=== PATIENT | female | born 1935 | race Caucasian/White ===

== ENCOUNTER 2016-08-17 09:52 | Inpatient (IN) | payer MEDICARE, OTHER ==
[~2016-08-17 09:52] MED LIST: MORPHINE SULFATE 15 MG TABLET.SA PO PRN; RINGERS SOLUTION,LACTATED 1,000 ML IV PRN; ROPIVACAINE HCL/PF 100 MG, EPINEPHrine 0.2 MG, KETOROLAC TROMETHAMINE 30 MG in NORMAL S... IJ PRN; TRANEXAMIC ACID 1,000 MG in NORMAL SALINE 100 ML IV PRN; ceFAZolin SODIUM 1 GM VIAL IV PRN
--- OUTSIDE RECORDS SUMMARY | 2016-08-17 09:57 | XMS REPORT | Continuity of Care Document ---
:1935 Author Organization [facility] ([facility]) Address [address] [place] [address] Phone [phone] Care Team Providers Name Role Phone ErosCarlos james Primary Care Provider [phone] Source Comments This disclosure is being made pursuant to the Care Everywhere program, applicable federal and state laws, and may not contain all informaitonavailable regarding this patient.[facility] ([facility]) Active Allergies and Adverse Reactions No Known Allergies Current Medications Not on file Active Problems Not on file Social History Tobacco Use Types Packs/Day Years Used Date Never Assessed Last Filed Vital Signs Vital Sign Reading Time Taken Blood Pressure 144/68 10/20/2014 12:52 PM CDT Pulse 66 10/20/2014 12:50 PM CDT Temperature 37.4 C (99.3 F) 10/20/2014 12:50 PM CDT Respiratory Rate 16 10/20/2014 12:50 PM CDT Height 1.661 m (5' 5.39") 10/20/2014 12:50 PM CDT Weight 72.5 kg (159 lb 13.3 oz) 10/20/2014 12:50 PM CDT Body Mass Index 26.28 10/20/2014 12:50 PM CDT Oxygen Saturation 97% 10/20/2014 12:50 PM CDT Plan of Care Health Maintenance Due Date Last Done Comments Hepatitis B Vaccine (1 of 3 - Primary Series) 1935 Tdap Vaccine 1944 Lipid Disorder Screening 10/05/1951 Td Vaccine 10/05/1951 Colonoscopy 1983 Zoster Vaccine 1993 Osteoporosis Screening (DXA Bone Density) 1998 Pneumococcal Vaccine (1 of 2 - PCV13) 1998 Influenza Vaccine: Seasonal (#1) 10/12/2015 Results from Last 3 Months Not on file
[2016-08-17] MEDS ORDERED: RINGERS SOLUTION,LACTATED 1,000 ML IV ONE ×2 (12:50→14:05)
[2016-08-17] MEDS ORDERED: ONDANSETRON HCL/PF 2 MG/ML VIAL IV PRN (14:22)
[2016-08-17] MEDS ORDERED: PROMETHAZINE HCL 5 MG in DEXTROSE 5 % IN WATER 50 ML IV PRN ×2 (14:22)
[2016-08-17] MEDS ORDERED: MAG HYDROX/ALUMINUM HYD/SIMETH 30 ML UDC PO PRN (14:22)
[2016-08-17] MEDS ORDERED: HYDROmorphone HCL 1 MG/ML DISP.SYRIN IV PRN (14:22)
[2016-08-17] MEDS ORDERED: diphenhydrAMINE HCL 50 MG/ML VIAL IV PRN (14:22)
[2016-08-17] MEDS ORDERED: ACETAMINOPHEN 500 MG TABLET PO PRN (14:22)
[2016-08-17] MEDS ORDERED: ZOLPIDEM TARTRATE 5 MG TABLET PO PRN (14:22)
[2016-08-17] MEDS ORDERED: MAGNESIUM HYDROXIDE 30 ML UDC PO PRN (14:22)
--- NOTE | 2016-08-17 14:28 | OR ---
Operative Report - Dictated Report Narrative: Date: 08/17/2016 Preoperative diagnosis: Right hip degenerative joint disease. Postoperative diagnosis: Right hip degenerative joint disease. Procedure: Right Total hip arthroplasty. Surgeon: Micky Sky M.D. Beater Head: Rob Marks PA-C Anesthesia: Spinal and local periarticular joint injection. Complications: None Specimens: Bone for disposal. Estimated blood loss: 100 milliliters. Retained implants: Depuy [place] size 5 femoral stem standard offset. Size 52 millimeter ouside diameter 3-hole [place] Gription acetabular cup. 52 millimeter outside by 36 millimeter inside diameter highly cross-linked acetabular liner. 36 millimeter diameter +1.5 millimeter cobalt chromium femoral head. Cancellous 6.5mm screw 30 millimeter length Indications: Mrs. Osorio is an 80-year-old female who has had long-standing left hip pain. This patient was followed in my clinic for period of time with significant complaints of right hip pain consistent with arthritic changes. She failed conservative measures including but not limited to activity modification, passage of time, medications, and other conservative measures. Patient wished to proceed with surgical treatment. The risks, benefits, and alternatives were discussed in clinic. The risks of , blood clots, bleeding, infection, nerve/tendon blood vessel/ injury, malposition of components, dislocation and/or instability of joint, intraoperative fracture, postoperative limited range of motion, persistent pain, failure of components, and need for additional procedures. Patient wished to proceed. Consent was obtained after answering all questions. Procedure: After marking the correct extremity on the floor, the patient was taken to the operating room. A timeout was performed. IV antibiotics consisting of Ancef were administered prior to the procedure. A spinal anesthetic was induced by anesthesia. A Lopez catheter was inserted. The patient was then transitioned to a lateral position on a well-padded pegboard. An axillary roll was placed. The head was in neutral position. The non- operative down leg was well-padded with SCD and NALLELY hose in place. The arms were supported and padded to protect from any undue pressure on the bony prominences and nerves. A well-padded anterior and posterior pelvic and chest posts were secured in order to maintain a stable position of the pelvis. This was placed so that the pelvis was perpendicular to the floor. The body was in line with the pelvis. Once it was felt that we had protected all the bony prominences and the patient was well secured with a safety belt as well, the leg was pre-scrubbed with alcohol, prepped and draped in a standard sterile fashion. A standard anterior lateral hip incision was marked out over the greater trochanter. Ioban drapes were then placed. The skin incision was then made. Sharp dissection with a scalpel utilizing cautery for hemostasis was carried out down to the gluteus and iliotibial band fascia. This was split in line with the skin incision. The greater trochanter bursa was excised. The anterior and posterior margins of the abductor tendon were identified. The anterior 1/2-1/3 of the tendon was tagged and reflected off the greater trochanter leaving a sleeve of tendon for repair at the completion of the case. This exposed the underlying hip joint capsule. A limb length stitch was placed in the skin and referencedd off a brook on the greater trochanter for evaluation of intraoperative limb lengths. An inverted T-type capsulotomy was made extending this up to the brim of the acetabulum. Using Homans to assist with elevation of the soft tissues off the anterior, superior, and inferior aspects of the femoral neck, the hip was then placed in a figure 4 position and the femoral head was dislocated. With the leg in an externally rotated and adducted position, the cutting flag was utilized in order to brook for a standard femoral neck cut approximately a fingerbreadth above the level of the lesser trochanter. This was done with reference to pre-operative films and overall alignment. This was done while protecting the surrounding soft tissues with Homans. The femoral head was then removed and sized for guidance on preparation of the acetabulum. It was noted that there was loss of articular cartilage on both the femoral head and weightbearing portions of the acetabulum. We then returned the leg to the table and turned our attention to the acetabulum. While protecting the surrounding soft tissues, the labrum and remaining tissue in the fovea were excised using a scalpel and cautery. A series of reamers up to size 52 millimeter were utilized to prepare the acetabulum. The final reamer had good purchase and exposed the bleeding subchondral bone. The acetabulum was then thoroughly irrigated ensuring that all bony and cartilaginous materials were removed, and the final acetabular shell was impacted into place. This was placed in approximately 45 degrees of abduction and 20 degrees of anteversion utilizing the outrigger and body axis for alignment. This had a good press fit. 1 6.5mm cancellous screw was placed in the superior posterior quadrant of the acetabulum. The shell was then thoroughly irrigated and the final polyethylene was impacted into place ensuring that it seated completely. This was then protected with a sponge while we returned our attention to the femur. With the leg in a figure 4 position, utilizing Homans for soft tissue protection , a box cutting osteotome, followed by Charnley awl, followed by serial reamers and broaches were utilized in order to prepare the femur. It was found that a size 5 broach gave good axial and rotational stability. The calcar reamer was utilized in order to clean up the cut edges. The proximal femur was visualized to ensure that there were no signs of fracture. A series of heads and necks were trialed. It was found that a standard neck and a + 1.5 femoral head gave good overall stability. There was minimal longitudinal instability. With the leg in the position of sleep, the femoral head was well covered. Hip range of motion was able to reach full extension and external rotation to greater than 75 degrees prior to impingement along the posterior acetabulum. The hip was able to be flexed to greater than 90 degrees with internal rotation greater than 60 degrees prior to anterior impingement. The limb lengths were near equal based on comparison to the contralateral side and the prior placed limb length stitch. At this point it was felt these were the appropriately sized femoral components as well as neck and femoral head. The trial implants were removed. The femur was thoroughly irrigated. The final implants were impacted into place, and the hip was reduced. After ensuring that there was no damage to the proximal femur , the standard periarticular joint injection of ropivacaine, Toradol, and epinephrine were injected into the joint capsule and surrounding soft tissues. Anesthesia then administered intravenous tranexamic acid. The capsule was repaired with a single interrupted #1 Vicryl. The abductor tendon was repaired to the greater trochanter utilizing #5 Ethibond through drill holes. This was oversewn with #1 Vicryl. The fascia was closed with interrupted #1 Vicryl. The wounds were thoroughly irrigated as we closed in layers. The deep and subcutaneous fat layers were closed with 0 and 3-0 Vicryl respectively. The subcutaneous tissue was closed with a running 3-0 Vicryl and the skin with Monocryl and Prineo Dermabond dressing. All sponge, needle, blade, and instrument counts were correct prior to closing the wounds. Sterile dressings consisting of 4 x 4's and tape were applied. The patient was awoken and transferred to her hospital bed and then to the postanesthesia care unit in stable condition. Postoperative condition: The plan is to admit to the medical/surgical inpatient floor postoperatively. There will be a projected 2 to 4 day hospital stay. Postoperatively 24 hours of IV antibiotics, pain control, physical therapy, occupational therapy, and medical comanagement will be utilized. Patient will be weightbearing as tolerated with anterior hip precautions. Postoperative films will be obtained in the recovery room.
[2016-08-17] MEDS: KETOROLAC TROMETHAMINE 15 MG/ML VIAL IV SCH ×2 (15:17→20:27)
[2016-08-17] MEDS: DEXTROSE 5%-LACTATED RINGERS 1,000 ML IV PRN (15:19)
[2016-08-17] MEDS: ceFAZolin SODIUM 1 GM in DEXTROSE 5 % IN WATER 100 ML IV SCH ×4 (15:24→21:33)
[2016-08-17] MEDS: MAGNESIUM OXIDE 400 MG TABLET PO SCH (17:20)
[2016-08-17] MEDS: MORPHINE SULFATE 15 MG TABLET.SA PO SCH (20:27)
[2016-08-17] MEDS: ROSUVASTATIN CALCIUM 10 MG TABLET PO SCH (20:27)
[2016-08-17] MEDS: BETA-CAROTENE(A) W-C , E/MIN 1 TAB TABLET PO SCH (20:28)
[2016-08-17] MEDS: SENNOSIDES/DOCUSATE SODIUM 1 TAB TABLET PO SCH (20:28)
[2016-08-17] MEDS: FAMOTIDINE 20 MG TABLET PO SCH (20:28)
[2016-08-17] MEDS: METHENAMINE MANDELATE 1 GM TABLET PO SCH (20:28)
[2016-08-18] MEDS: DEXTROSE 5%-LACTATED RINGERS 1,000 ML IV PRN (00:24)
[2016-08-18] MEDS: oxyCODONE HCL/ACETAMINOPHEN 1 TAB TABLET PO PRN ×3 (00:26→21:43)
[2016-08-18] MEDS: KETOROLAC TROMETHAMINE 15 MG/ML VIAL IV SCH ×4 (01:50→21:41)
[2016-08-18] MEDS: ceFAZolin SODIUM 1 GM in DEXTROSE 5 % IN WATER 100 ML IV SCH ×2 (03:53)
[2016-08-18 05:57] LABS: Hemoglobin 10.3 gm/dL (12.5-16.0); Mean Cell Volume 86.8 fl (78-100); Mean Corpuscular Hemoglobin 28.9 pg (27-31); Mean Corpuscular Hgb Conc 33.2 g/dl (32-36); Mean Platelet Volume 10.2 fl (6.0-9.5); Platelet Count 203 K/mm3 (150-450); Red Blood Count 3.57 M/mm3 (4.2-5.4); Red Cell Distribution Width 13.4 % (11.5-14.0); White Blood Count 10.8 K/mm3 (4.0-10.5)
[2016-08-18 06:18] LABS: Anion Gap 4.7 mmol/L (6.8-13.8); BUN/Creatinine Ratio 14.3 (9.0-21.6); Calcium * 8.5 mg/dL (7.9-10.9); Carbon Dioxide 31.5 mmol/L (24-32.6); Estimated Creat Clear 35.5; Potassium 3.2 mmol/L (3.4-4.6)
[2016-08-18] MEDS: LEVOTHYROXINE SODIUM 75 MCG TABLET PO SCH (07:22)
[2016-08-18] MEDS: HYDROCHLOROTHIAZIDE 25 MG TABLET PO SCH (08:00)
[2016-08-18] MEDS: METHENAMINE MANDELATE 1 GM TABLET PO SCH ×2 (08:00→21:43)
[2016-08-18] MEDS: BETA-CAROTENE(A) W-C , E/MIN 1 TAB TABLET PO SCH ×2 (08:00→21:45)
[2016-08-18] MEDS: ISOSORBIDE MONONITRATE 60 MG TAB.SR.24H PO SCH (08:00)
[2016-08-18] MEDS: CLOPIDOGREL BISULFATE 75 MG TABLET PO SCH (08:00)
[2016-08-18] MEDS: MORPHINE SULFATE 15 MG TABLET.SA PO SCH ×2 (08:03→21:43)
--- NOTE | 2016-08-18 08:14 | PN ---
Subjective - Date and Time Seen Date: 08/18/16 Time: 08:14 Subjective Narrative: Subjective: Reports pain last night which improved this morning. Was able to sit on the side of the bed with therapy. Pain is well-controlled. Voiding without any complications. Tolerating by mouth intake. Denies any nausea or vomiting. Denies calf pain. Slept well. Physical exam: Alert and oriented to person, place and time Right lower Extremity: Palpable dorsalis pedis pulse. Sensation grossly intact to light touch. Dressings clean and dry. Able to flex and extend ankle and toes. No excessive drainage. Calf and thigh are soft and nontender. Assessment: Postop day 1 status post right total hip arthroplasty. Plan: Continue with physical and occupational therapy weightbearing as tolerated. Continue with anticoagulation. 24 hours postoperative prophylactic antibiotics. Pain control with goal to rely on oral medications. Continue bowel regimen. Will need 6 weeks with walker or assitive device to protect joint while ambulating during the recovery process. Discharge planning. Discontinue drain and Lopez catheter. Repeat labs in a.m. Objective - Vitals Vitals: Last Vital Signs Temp 36.6 C 08/18/16 06:27 Pulse 77 08/18/16 08:00 Resp 16 08/18/16 06:27 BP 108/53 08/18/16 08:00 Pulse Ox 95 08/18/16 06:27 - Abnormal Lab Findings Abnormal Lab Findings: Abnormal Lab Results 08/18/16 08/18/16 Range/Units 05:54 05:54 WBC 10.8 H (4.0-10.5) K/mm3 RBC 3.57 L (4.2-5.4) M/mm3 Hgb 10.3 L (12.5-16.0) gm/dL Hct 31.0 L (37.0-47.0) % MPV 10.2 H (6.0-9.5) fl Potassium 3.2 L (3.4-4.6) mmol/L Anion Gap 4.7 L (6.8-13.8) mmol/L Est GFR (Non-Af Amer) 50 L (60-130) mL/min Random Glucose 182 H (70-110) mg/dL Cauti Physician Documentation - Urinary Catheter Management Urethral (Lopez) Date of Insertion: 08/17/16 Time of Insertion: 12:50 Date of Removal: 08/18/16 Time of Removal: 07:18
[2016-08-18] MEDS: POTASSIUM CHLORIDE 20 MEQ TABLET.SA PO SCH (11:51)
[2016-08-18] MEDS: CYANOCOBALAMIN 1,000 MCG TABLET PO SCH (11:52)
[2016-08-18] MEDS: CHOLECALCIFEROL 1,000 UNIT CAPSULE PO SCH (11:52)
[2016-08-18] MEDS: ENOXAPARIN SODIUM 40 MG/0.4 ML SYRG SC SCH (13:43)
[2016-08-18] MEDS: MAGNESIUM OXIDE 400 MG TABLET PO SCH (17:46)
[2016-08-18] MEDS: ROSUVASTATIN CALCIUM 10 MG TABLET PO SCH (21:42)
[2016-08-18] MEDS: FAMOTIDINE 20 MG TABLET PO SCH (21:44)
[2016-08-18] MEDS: SENNOSIDES/DOCUSATE SODIUM 1 TAB TABLET PO SCH (21:44)
[2016-08-19] MEDS: KETOROLAC TROMETHAMINE 15 MG/ML VIAL IV SCH ×2 (03:24→09:01)
[2016-08-19 06:21] LABS: Hematocrit 30.8 % (37.0-47.0); Hemoglobin 10.3 gm/dL (12.5-16.0); Mean Cell Volume 87.5 fl (78-100); Mean Corpuscular Hemoglobin 29.3 pg (27-31); Mean Corpuscular Hgb Conc 33.4 g/dl (32-36); Mean Platelet Volume 9.7 fl (6.0-9.5); Platelet Count 200 K/mm3 (150-450); Red Blood Count 3.52 M/mm3 (4.2-5.4); Red Cell Distribution Width 13.5 % (11.5-14.0); White Blood Count 7.3 K/mm3 (4.0-10.5)
[2016-08-19 06:33] LABS: Anion Gap 7.9 mmol/L (6.8-13.8); BUN/Creatinine Ratio 18.5 (9.0-21.6); Carbon Dioxide 30.6 mmol/L (24-32.6); Estimated Creat Clear 36.9; Potassium 3.5 mmol/L (3.4-4.6)
[2016-08-19] MEDS: LEVOTHYROXINE SODIUM 75 MCG TABLET PO SCH (07:26)
[2016-08-19] MEDS: MORPHINE SULFATE 15 MG TABLET.SA PO SCH (09:01)
[2016-08-19] MEDS: ISOSORBIDE MONONITRATE 60 MG TAB.SR.24H PO SCH (09:01)
[2016-08-19] MEDS: METHENAMINE MANDELATE 1 GM TABLET PO SCH (09:01)
[2016-08-19] MEDS: HYDROCHLOROTHIAZIDE 25 MG TABLET PO SCH (09:01)
[2016-08-19] MEDS: BETA-CAROTENE(A) W-C , E/MIN 1 TAB TABLET PO SCH (09:02)
[2016-08-19] MEDS: CLOPIDOGREL BISULFATE 75 MG TABLET PO SCH (09:02)
[2016-08-19 11:15] VITALS: BP 120/53
--- NOTE | 2016-08-19 11:40 | DS ---
(1) Acute blood loss anemia Problem: Acute (2) Hypokalemia Problem: Chronic (3) CAD (coronary artery disease) Problem: Chronic (4) GERD (gastroesophageal reflux disease) Problem: Chronic (5) Hyperlipidemia Problem: Chronic (6) Hypertension Problem: Chronic (7) Hypothyroid Problem: Chronic (8) Vitamin D deficiency Problem: Chronic (9) Scoliosis Problem: Chronic (10) Spinal stenosis Problem: Chronic (11) Macular degeneration Problem: Chronic (12) Status post total hip replacement, right Problem: Chronic Description of Stay: Mrs. Osorio was admitted to the floor after undergoing right total hip arthroplasty. Tolerated this well. Was admitted to the floor postoperatively for 24 hours of IV antibiotics, pain control, medical comanagement, and occupational and physical therapy. OT and PT were consulted to assist with activities of daily living and ambulation. Was made weightbearing as tolerated with anterior hip precautions. Pain was initially controlled with IV regimen. This was transitioned to oral once tolerating a by mouth intake. Was resumed on home diet and medications. Had a Lopez catheter inserted and the operating room which was discontinued on postoperative day 1. ovenox SCD and NALLELY hose were utilized for DVT prophylaxis. Vital signs remained stable to the hospital course. Serial labs were obtained which showed a final hemoglobin of 10.3 grams. BMP was reviewed and was stable. Physical examination throughout the hospital course showed an extremity that had sensation that was intact to light touch, palpable pulses, a benign wound, motor intact to the toes, ankle, and knee. Once an oral pain regimen was tolerated and physical therapy goals were met, it was felt that they were stable for discharge to home. Instructions: Continue with weightbearing as tolerated and anterior hip precautions. As long as there is no drainage from the wound she is okay to shower. If there is any drainage from the wound she is instructed to keep the wound clean and dry. Cover with dry gauze and tape. Change every 2-3 days as needed. Cover wound while showering if there is any drainage from the wound. Continue with physical therapy. Resume home diet. Report any fever over 101.5 Fahrenheit, uncontrolled pain, increased drainage, foul odor of drainage, new or increased calf pain or shortness of breath, or any other significant complaints. A 325mg dialy aspirin will be started after finishing anticoagulation if not allergic. Continue with NALLELY hose on the operative extremity until instructed otherwise. No driving until instructed otherwise. Follow up in approximately 10-14 days. Procedures Performed: see notes below List Procedures: Right total hip arthroplasty Discharge Disposition: Home self care Disposition: Home self-care Condition: Good Discharge Activity: Weight bearing, Other - anterior hip precautions Discharge Diet: General/regular food Halfway Therapy: Physicial Therapy Referrals: Carlos Alcaraz DO [Primary Care Provider] - Additional Patient Instructions (free text): F/U 09-01-16 @ 1:45pm with Dr Sky. PT appointment at [facility], 08/22 at 10:45am. Prescriptions (Any new or edited meds): Enoxaparin Sodium [Lovenox] 40 mg SC Q24H #7 disp.syrin Morphine Sulfate [Ms Contin] 15 mg PO Q12H #20 tablet.sa oxyCODONE HCL/ACETAMINOPHEN [Percocet 5 MG/325 MG] 2 tab PO Q4H PRN #60 tablet PRN Reason: Moderate Pain Complete Home Medications List: Complete Home Medication List: Aspirin [Aspirin Enteric Coated] 81 mg PO 08/05/16 Atorvastatin Calcium [Lipitor] 40 mg PO 08/05/16 Cholecalciferol (Vitamin D3) [Vitamin D3] 1,000 unit PO DAILY@119908/05/16 Clopidogrel Bisulfate [Plavix] 75 mg PO DAILY@89908/05/16 Cyanocobalamin (Vitamin B-12) [Vitamin B-12] 1,000 mcg SL DAILY@119908/05/16 Famotidine [Pepcid] 20 mg PO 08/05/16 Hydrochlorothiazide [Hydrodiuril] 25 mg PO DAILY@89908/05/16 Isosorbide Mononitrate [Imdur] 60 mg PO DAILY@89908/05/16 Levothyroxine Sodium [Synthroid] 75 mcg PO DAILY@0808/05/16 Magnesium 400 mg PO DAILY@1800 08/05/16 Methenamine Hippurate [Urex] 1 gm PO BID 08/05/16 Potassium Chloride [Klor-Con M20] 20 meq PO DAILY@119908/05/16 Ubidecarenone/Vit E Acet [Co Q-10 100 mg Softgel] 2 each PO DAILY@119908/05/16 Vit C/Vit E AC/Lut/Copper/Zinc [Preservision Lutein Softgel] 1 each PO BID 08/05 Enoxaparin Sodium [Lovenox] 40 mg SC Q24H #7 disp.syrin 08/19/16 Morphine Sulfate [Ms Contin] 15 mg PO Q12H #20 tablet.sa 08/19/16 Sennosides/Docusate Sodium [Senokot-S] 2 tab PO HS tablet 08/19/16 oxyCODONE HCL/ACETAMINOPHEN [Percocet 5 MG/325 MG] 2 tab PO Q4H PRN #60 tablet 08/19/16 Amb Orders for Discharge: PT Evaluation and Treatment Facility: [facility], Location: Rehabilitation Services
[2016-08-19] MEDS: CYANOCOBALAMIN 1,000 MCG TABLET PO SCH (12:27)
[2016-08-19] MEDS: CHOLECALCIFEROL 1,000 UNIT CAPSULE PO SCH (12:27)
[2016-08-19] MEDS: POTASSIUM CHLORIDE 20 MEQ TABLET.SA PO SCH (12:28)
[2016-08-19] MEDS: ENOXAPARIN SODIUM 40 MG/0.4 ML SYRG SC SCH (12:32)
== END 2016-08-19 14:00 | disposition home or self-care (01) | DRG 470 ==
LOC: MS 09:52
PROVIDERS: ADMIT Orthopaedic Surgery; ATTEND Orthopaedic Surgery
PROC: 0SR90JZ Replacement of Right Hip Joint with Synthetic Substitute, Open Approach (ICD-10-PCS; principal; 2016-08-17 14:55)
DX: M16.11 Unilateral primary osteoarthritis, right hip (principal); D62 Acute posthemorrhagic anemia; E87.6 Hypokalemia; I10 Essential (primary) hypertension; I25.10 Atherosclerotic heart disease of native coronary artery without angina pectoris; E03.9 Hypothyroidism, unspecified; K21.9 Gastro-esophageal reflux disease without esophagitis; Z95.5 Presence of coronary angioplasty implant and graft